=== PATIENT | female | born 1975 | race Caucasian/White ===

== ENCOUNTER 2019-04-06 00:26 | Emergency (ER) | payer OTHER ==
[2019-04-06 00:54] VITALS: BP 135/87; TEMP 98.6; BMI 20.2
[2019-04-06 01:29] LABS: URINE PREGNANCY TEST NEGATIVE (NEGATIVE)
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
[2019-04-06] MEDS ORDERED: NORFLEX PO STA (02:20)
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
== END 2019-04-06 02:41 | disposition home or self-care (01) ==
LOC: ED 00:26
DX: S16.1XXA Strain of muscle, fascia and tendon at neck level, initial encounter (principal); M54.5 Low back pain; Y04.8XXA Assault by other bodily force, initial encounter
CPT/HCPCS: 81025; 99283